=== PATIENT | male | born 1985 | race Two or more races ===

== ENCOUNTER 2018-11-24 19:44 | Emergency (ER) | payer SELFPAY ==
[~2018-11-24] VITALS: Ht 167.6 cm; Wt 62.6 kg
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
--- NOTE | 2018-11-24 20:10 | NUR ---
LEFT SIDE OF THE PT'S FACE IS EDEMATOUS, SORE, AND PT IS NOT ABLE TO MOVE HIS JAW WITHOUT GRIMACING.
[2018-11-24] MEDS ORDERED: ACETAMINOPHEN ES 500 MG TABLET ONE (20:29)
[2018-11-24] MEDS ORDERED: ACETAMINOPHEN ES 500 MG TABLET PO ONE (20:30)
--- NOTE | 2018-11-24 20:30 | NUR ---
PT TOLERATED PO WELL, BUT GRIMACED WHEN THE WATER/MEDICATION MOVED TO THE LEFT SIDE OF HIS MOUTH.
--- NOTE | 2018-11-24 20:30 | NUR ---
PT REC'D TYLENOL ORDERED.
--- NOTE | 2018-11-24 21:20 | NUR ---
CALLING KEVIN RE: CT. CT IS GOING ON THE "HOTLINE".
--- NOTE | 2018-11-24 21:39 | NUR ---
Patient discharged to home in stable condition. Written and verbal after care instructions given. Patient verbalizes understanding of instruction AND RX. PT AMBULATED OUT WITH A STEADY GAIT. VSS. NAD NOTED. RESP EVEN AND UNLABORED.
[2018-11-24 21:40] VITALS: BP 114/78
== END 2018-11-24 21:41 | disposition home or self-care (01) ==
LOC: ER 19:47
DX: S00.83XA Contusion of other part of head, initial encounter (principal); J45.909 Unspecified asthma, uncomplicated; Y04.0XXA Assault by unarmed brawl or fight, initial encounter; Y93.89 Activity, other specified; Y92.89 Other specified places as the place of occurrence of the external cause; Y99.8 Other external cause status
CPT/HCPCS: 70486; 99284; A4606